=== PATIENT | male | born 1975 | race Caucasian/White ===

== ENCOUNTER → 2022-03-28 | Emergency (ER) | payer MEDICAID ==
[~2022-03-28] VITALS: Ht 177.8 cm; Wt 77.1 kg
--- NOTE | 2022-03-28 13:26 | NUR ---
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 bg 113. ed physician dripped < 5 ml water on pt's face, pt flinched.
--- NOTE | 2022-03-28 13:54 | NUR ---
STRAIGHT IN AND OUT CATH DONE, COLLECTED URINE
[2022-03-28 14:17] VITALS: BP 137/97
[2022-03-28 14:17] LABS: ALANINE AMINOTRANSFERASE 27 U/L (12-78); ALBUMIN 3.9 g/dL (3.4-5.0); ALKALINE PHOSPHATASE 107 U/L (46-116); ASPARTATE AMINOTRANSFERASE 19 U/L (15-37); BILIRUBIN,DIRECT 0.2 mg/dL (0.0-0.2); BILIRUBIN,TOTAL 0.7 mg/dL (0.2-1.0); CARBON DIOXIDE 29 mmol/L (21-32); CHLORIDE 106 mmol/L (98-107); GLUCOSE 104 mg/dL (74-106); POTASSIUM 3.7 mmol/L (3.5-5.1); SODIUM SERUM 141 mmol/L (136-145); TOTAL PROTEIN, SERUM 7.2 g/dL (6.4-8.2); UREA NITROGEN, BLOOD 12 mg/dL (7-18)
[2022-03-28 14:29] LABS: ACETAMINOPHEN 0 ug/ml (10-30); ALCOHOL, BLOOD < 3 mg/dL (0-0)
[2022-03-28 14:31] LABS: BASOPHILS # (AUTO) 0.1 K/uL (0.0-0.2); BASOPHILS % (AUTO) 1.4 % (0.0-2.0); EOSINOPHILS % (AUTO) 1.6 % (0.0-6.0); HEMATOCRIT 40 % (39-51); HEMOGLOBIN 13.5 g/dL (13.5-17.5); LYMPHOCYTES # (AUTO) 2.7 K/uL (0.8-4.8); LYMPHOCYTES % (AUTO) 37.5 % (20.0-44.0); MEAN CORPUSCULAR HGB CONC 34 g/dl (31.0-36.0); MEAN CORPUSCULAR VOLUME 89 fL (80-96); MONOCYTES # (AUTO) 0.4 K/uL (0.1-1.30); MONOCYTES % (AUTO) 5.1 % (2.0-12.0); NEUTROPHILS # (AUTO) 3.9 K/uL (1.8-8.9); NEUTROPHILS % (AUTO) 54.4 % (43.0-81.0); PLATELET COUNT (AUTO) 401 K/uL (150-450); RED BLOOD CELL COUNT(AUTO) 4.46 MIL/uL (4.5-6.0); WHITE BLOOD COUNT (AUTO) 7.2 K/uL (4.3-11.0)
--- NOTE | 2022-03-28 16:27 | NUR ---
PT CLEARED MEDICALLY FOR DC. PT WAS AGITATED, C/O NUMBNESS IN R ARM. PT THEN STOP YELLING, BECAME LIMP, NO RESPONSE FOR STERNAL RUB. RN REPLACED PT ON MONITOR. LAW ENFORCEMENT LEFT. PT CURRENT VS ARE: 63 HR, 100% SPO2, 144/83, 97.1 F TEMP (AX).
--- NOTE | 2022-03-28 16:44 | NUR ---
BACK FROM CT, VS ARE: HR 54, SPO2 98%, 144/80, RR 16. PT STILL UNRESPONSIVE.
== END | disposition home or self-care (01) ==
LOC: ER 13:10
DX: R41.82 Altered mental status, unspecified (principal)
CPT/HCPCS: 36415; 70450-TC; 80048-TC; 80076-TC; 82962-TC; 85025-TC; G0480